=== PATIENT | female | born 1975 | race Caucasian/White ===

== ENCOUNTER 2022-11-11 13:43 | Observation (INO) ==
[2022-11-11] MEDS ORDERED: IOPAMIDOL 100 ML BOTTLE IV ONE (13:44)
[2022-11-11] MEDS ORDERED: MECLIZINE 25 MG TABLET PO ONE (13:48)
[2022-11-11] MEDS ORDERED: 0.9 % SODIUM CHLORIDE 1,000 ML IV ONE (13:48)
--- NOTE | 2022-11-11 13:48 | Emergency Department Note ---
Dizziness HPI General Chief Complaint: Dizziness Stated Complaint: chest pains Time Seen by Provider: 11/11/22 13:48 Source: patient Mode of arrival: ambulatory Limitations: no limitations History of Present Illness HPI Narrative: Narrative: Patient is a 47-year-old female who comes into the emergency department today reporting that approximately 4 days ago she started experiencing some occasional dizziness that last for a few seconds and goes away. She is also developed some right-sided chest pain that she describes as aching and sharp pain and radiates to the right shoulder blade. She currently rates her pain 7 out of 10 on a 0-10 numerical pain scale. She has noticed that the pain is slightly worse with taking a deep breath. She has felt occasionally short of breath. She denies any fevers or chills. She has had an occasional cough. She denies any hemoptysis. She does smoke. She denies any history of cardiovascular event, PE, or DVT. She has not had any abdominal pain, nausea, or vomiting. She has had an occasional headache located on the right rastafari of her head. She reports that this is similar to headache she has had in the past. She does have migraines and reports occasionally having some mild wavy lines in her vision. Her headache has been relieved with [id number] pain reliever. She rates her headache 2 out of 10 on a 0-10 numerical pain scale. Patient felt that her symptoms may have been related to anxiety and that is why she waited for the last 4 days before seeking medical attention. Related Data Home Medications Medication Instructions Recorded Confirmed cyclobenzaprine 10 mg tablet 5 mg PO HS 10/09/16 04/13/17 duloxetine 20 mg capsule,delayed 20 mg PO HS 10/09/16 04/13/17 release hydrocodone 7.5 mg-acetaminophen 1 tab PO BID 10/09/16 04/13/17 325 mg tablet ibuprofen 600 mg tablet 600 mg PO BID 10/09/16 04/13/17 lorazepam 1 mg tablet 1 mg PO DAILYP PRN Anxiety 10/09/16 04/13/17 Previous Rx's Medication Instructions Recorded benzocaine 20 % mucosal gel (Oral 1 applic mucous membrane BID PRN 04/13/17 Anesthetic) mouth irritation #9 grams Allergies Allergy/AdvReac Type Severity Reaction Status Date / Time Penicillins Allergy Intermediate Hives Verified 04/13/17 17:30 Sulfa (Sulfonamide Allergy Intermediate Hives Verified 04/13/17 17:30 Antibiotics) metal AdvReac Mild Redness of Uncoded 10/09/16 00:27 Skin Review of Systems ROS ROS Narrative: Narrative: All systems ED: reviewed and negative except as stated. [facility] Narrative Patient History Narrative: Narrative: Medical/Surgical/Family History All Active Problems (Updated 11/11/22 @ 17:39 by Lauri Angel DNP) Strain of lumbar region (Acute) Acute cholecystitis (Acute) Cholelithiasis (Acute) Social History Alcohol Intake Frequency: does not drink Substance Use: does not use Exam Narrative Narrative: Narrative: General Limitations: no limitations General appearance: Present alert and in no apparent distress Head Head: Present atraumatic, normocephalic and normal inspection Eye Eye: Present normal appearance, PERRL, EOMI, visual shanks intact and other (Negative skew test.); Absent scleral icterus, nystagmus or periorbital swelling ENT ENT: Present normal oropharynx and mucous membranes moist Neck Neck: Present normal inspection and full ROM; Absent lymphadenopathy Expanded Neck Neck - focused: Absent JVD Chest Chest: Present normal inspection and symmetric chest wall rise; Absent tenderness Respiratory Respiratory: Present normal lung sounds bilaterally; Absent respiratory distress, rales/crackles, wheezes or accessory muscle use Cardiovascular Cardiovascular: Present regular rate, normal rhythm and normal heart sounds; Absent JVD Extremities Extremities: Present normal inspection, full ROM and normal capillary refill; Absent pretibial edema or cyanosis Neurological Neurological: Present alert, oriented X3, CN II-XII intact and normal gait; Absent motor sensory deficit Expanded Neurological CEREBELLAR FUNCTION: finger to nose: Normal and heel to garcia: Normal Motor strength - LUE: 5/5 Motor strength - RUE: 5/5 Motor strength - LLE: 5/5 Motor strength - RLE: 5/5 SENSORY EXAM UPPER EXTREMITY: Normal: light touch SENSORY EXAM LOWER EXTREMITY: Normal: light touch Coma Scale Eye Opening: Spontaneous Coma Scale Motor Response: Obeys Commands Coma Scale Verbal Response: Oriented Coma Scale Total: 15 Skin Skin: Present warm (WNL), dry and normal color Course Vital Signs Vital signs: Vital Signs Temperature 98.9 F 11/11/22 13:44 Pulse Rate 100 H 11/11/22 13:44 Respiratory Rate 20 11/11/22 13:44 Blood Pressure 124/75 11/11/22 13:44 Pulse Oximetry (%) 100 11/11/22 13:44 Oxygen Delivery Method Room Air 11/11/22 13:44 Temperature 98.9 F 11/11/22 13:44 Pulse Rate 73 11/11/22 18:01 Respiratory Rate 20 11/11/22 13:44 Blood Pressure 65/42 11/11/22 16:31 Pulse Oximetry (%) 100 11/11/22 18:01 Oxygen Delivery Method Room Air 11/11/22 13:44 [facility] MDM Narrative Medical decision making narrative: Narrative: Patient is a 47-year-old female who came into the emergency department today with chief complaint of chest pain on the right side of her chest with radiation to her back that started 4 days ago. She is having some occasional dizziness that is very short-lived and last for few seconds at a time without any aggravating factors. Proceeded with EKG, chest x-ray, and laboratory evaluation for ACS and other causes of chest pains and dizziness. Her neurological examination today is normal. Patient's EKG is normal sinus rhythm with a rate of 84 and QTc of 447. No findings of acute coronary syndrome are seen on the EKG. Patient was given 1 L of IV normal saline for hydration and 324 mg of oral aspirin. Patient's D-dimer was minimally elevated today and she was complaining of shortness of breath and chest pain. There was consideration of potential PE. Proceed with CTA of chest for further evaluation. The CTA of the chest did not show any evidence of PE or other acute cardiopulmonary processes. On a secon fazal finding of the CTA there was findings of cholelithiasis and with patient having the symptoms of the right chest and shoulder blade discomfort this could be referred pain from the liver. I reevaluated the patient and she does have positive Leal sign. Ordered gallbladder ultrasound for further evaluation. Patient's white count today was normal and did not show any anemia. Her [id number]-[id number] chemistry panel is unremarkable. proBNP minimally elevated at 220. [id number] troponin is negative. Her urinalysis did not show any bacteria. There was some leukocyte Estrace and small amount of red blood cells but no findings of urinary tract infection. She is asymptomatic for any urinary tract infection as well. Patient's gallbladder ultrasound show multiple stones packing in the gallbladder compatible with severe cholelithiasis. Gallbladder wall is mildly thickened which may indicate early associated cholecystitis. Patient's AST is 13 and ALT 10. Total bilirubin 0.2. Patient's white count is normal. I contacted Dr. Marco Ortiz who is on-call for general surgery today to explain the findings seen on the ultrasound and laboratory work-up thus far. He recommended patient be admitted to [facility] under observation and clear liquids until midnight and then n.p.o. after midnight. He will plan on likely cholecystectomy in the morning. Patient will be admitted under Dr. Ortiz at [facility]. Patient reports having some mild hives with p enicillin but states she has taken Zosyn before. Dr. Ortiz preferred Zosyn for the patient and ordered Zosyn and transition orders to be admitted to [facility] today. Lab Data Lab results reviewed: Yes I reviewed the patient's lab results. 11/11/22 13:57 Labs: Lab Results 11/11/22 11/11/22 11/11/22 Range/Units 13:55 13:55 13:56 WBC (4.5-11.0) K/mcL RBC (3.59-5.38) M/mcL Hgb (11.2-15.7) g/dL Hct (34.1-44.9) % POC Hct (36-48) MCV (80.0-100.0) fL MCH (26.0-34.0) pg MCHC (31.0-36.0) g/dL RDW (11.5-14.5) % Plt Count (140-440) K/mcL MPV (8.8-12.5) fL Immature Gran % (Auto) (0.0-0.5) % Neut % (Auto) (38.0-78.0) % Lymph % (Auto) (15.5-49.0) % [place] % (Auto) (1.0-12.0) % Eos % (Auto) (0.0-7.0) % Baso % (Auto) (0.0-2.0) % Lymph # (Auto) (1.50-4.80) K/mcL [place] # (Auto) (0.10-0.90) K/mcL Eos # (Auto) (0.00-0.70) K/mcL Baso # (Auto) (0.00-0.30) K/mcL Immature Gran # (0.00-0.05) K/mcl Absolute Neutrophils (1.80-8.00) K/mcL D-Dimer 0.51 H (0.27-0.50) ug/mL POC Sodium (133-145) POC Potassium (3.3-5.1) POC Chloride (96-108) POC Total CO2 (22-30) POC Anion Gap (8.0-16.0) POC BUN (6-20) POC Creatinine (0.6-1.2) POC Glucose (70-105) POC WB Ioniz Calcium (1.16-1.32) Magnesium (1.6-2.5) mg/dL Total Bilirubin (0.1-1.0) mg/dL Direct Bilirubin (0-0.3) mg/dL AST (<32) U/L ALT (<40) U/L Alkaline Phosphatase (39-117) U/L NT-Pro-B Natriuret Pep 220.0 H (<125.0) pg/mL Total Protein (5.9-8.4) gm/dL Albumin (3.2-5.2) gm/dL Globulin (2.2-3.7) gm/dL Urine Color Urine Appearance (Clear) Urine pH (5.0-9.0) Ur Specific [place] (1.000-1.035) Urine Protein (Negative) mg/dL Urine Glucose (UA) (Negative) mg/dL Urine Ketones (Negative) mg/dL Urine Occult Blood (Negative) mg/dL Urine Nitrate (Negative) Urine Bilirubin (Negative) mg/dL Urine Urobilinogen mg/dL Ur Leukocyte Esterase (Negative) /uL Urine RBC (0-3) /hpf Urine WBC (0-4) /hpf Ur Squamous Epith Cells (0-4) /hpf Urine Bacteria (0) /hpf Hyaline Casts (0-2) /lph Urine Mucus (None) /hpf Ur Culture Indicated? POC Troponin I < 0.02 (0.00-0.08) 11/11/22 11/11/22 11/11/22 Range/Units 13:57 13:57 13:57 WBC 8.8 (4.5-11.0) K/mcL RBC 4.49 (3.59-5.38) M/mcL Hgb 13.3 (11.2-15.7) g/dL Hct 40.9 (34.1-44.9) % POC Hct 43.0 (36-48) MCV 91.1 (80.0-100.0) fL MCH 29.6 (26.0-34.0) pg MCHC 32.5 (31.0-36.0) g/dL RDW 13.2 (11.5-14.5) % Plt Count 342 (140-440) K/mcL MPV 9.3 (8.8-12.5) fL Immature Gran % (Auto) 0.3 (0.0-0.5) % Neut % (Auto) 58.9 (38.0-78.0) % Lymph % (Auto) 33.7 (15.5-49.0) % [place] % (Auto) 5.0 (1.0-12.0) % Eos % (Auto) 1.3 (0.0-7.0) % Baso % (Auto) 0.8 (0.0-2.0) % Lymph # (Auto) 2.96 (1.50-4.80) K/mcL [place] # (Auto) 0.44 (0.10-0.90) K/mcL Eos # (Auto) 0.11 (0.00-0.70) K/mcL Baso # (Auto) 0.07 (0.00-0.30) K/mcL Immature Gran # 0.03 (0.00-0.05) K/mcl Absolute Neutrophils 5.17 (1.80-8.00) K/mcL D-Dimer (0.27-0.50) ug/mL POC Sodium 138 (133-145) POC Potassium 4.5 (3.3-5.1) POC Chloride 103 (96-108) POC Total CO2 24.0 (22-30) POC Anion Gap 16.0 (8.0-16.0) POC BUN 13 (6-20) POC Creatinine 0.8 (0.6-1.2) POC Glucose 112 H (70-105) POC WB Ioniz Calcium 1.24 (1.16-1.32) Magnesium 2.0 (1.6-2.5) mg/dL Total Bilirubin 0.2 (0.1-1.0) mg/dL Direct Bilirubin < 0.2 (0-0.3) mg/dL AST 13 (<32) U/L ALT 10 (<40) U/L Alkaline Phosphatase 71 (39-117) U/L NT-Pro-B Natriuret Pep (<125.0) pg/mL Total Protein 7.5 (5.9-8.4) gm/dL Albumin 4.0 (3.2-5.2) gm/dL Globulin 3.5 (2.2-3.7) gm/dL Urine Color Urine Appearance (Clear) Urine pH (5.0-9.0) Ur Specific [place] (1.000-1.035) Urine Protein (Negative) mg/dL Urine Glucose (UA) (Negative) mg/dL Urine Ketones (Negative) mg/dL Urine Occult Blood (Negative) mg/dL Urine Nitrate (Negative) Urine Bilirubin (Negative) mg/dL Urine Urobilinogen mg/dL Ur Leukocyte Esterase (Negative) /uL Urine RBC (0-3) /hpf Urine WBC (0-4) /hpf Ur Squamous Epith Cells (0-4) /hpf Urine Bacteria (0) /hpf Hyaline Casts (0-2) /lph Urine Mucus (None) /hpf Ur Culture Indicated? POC Troponin I (0.00-0.08) 11/11/22 11/11/22 Range/Units 14:28 16:18 WBC (4.5-11.0) K/mcL RBC (3.59-5.38) M/mcL Hgb (11.2-15.7) g/dL Hct (34.1-44.9) % POC Hct (36-48) MCV (80.0-100.0) fL MCH (26.0-34.0) pg MCHC (31.0-36.0) g/dL RDW (11.5-14.5) % Plt Count (140-440) K/mcL MPV (8.8-12.5) fL Immature Gran % (Auto) (0.0-0.5) % Neut % (Auto) (38.0-78.0) % Lymph % (Auto) (15.5-49.0) % [place] % (Auto) (1.0-12.0) % Eos % (Auto) (0.0-7.0) % Baso % (Auto) (0.0-2.0) % Lymph # (Auto) (1.50-4.80) K/mcL [place] # (Auto) (0.10-0.90) K/mcL Eos # (Auto) (0.00-0.70) K/mcL Baso # (Auto) (0.00-0.30) K/mcL Immature Gran # (0.00-0.05) K/mcl Absolute Neutrophils (1.80-8.00) K/mcL D-Dimer (0.27-0.50) ug/mL POC Sodium (133-145) POC Potassium (3.3-5.1) POC Chloride (96-108) POC Total CO2 (22-30) POC Anion Gap (8.0-16.0) POC BUN (6-20) POC Creatinine (0.6-1.2) POC Glucose (70-105) POC WB Ioniz Calcium (1.16-1.32) Magnesium (1.6-2.5) mg/dL Total Bilirubin 0.2 (0.1-1.0) mg/dL Direct Bilirubin < 0.2 (0-0.3) mg/dL AST 10 (<32) U/L ALT 8 (<40) U/L Alkaline Phosphatase 63 (39-117) U/L NT-Pro-B Natriuret Pep (<125.0) pg/mL Total Protein 6.6 (5.9-8.4) gm/dL Albumin 3.8 (3.2-5.2) gm/dL Globulin 2.8 (2.2-3.7) gm/dL Urine Color [place] Urine Appearance Hazy A (Clear) Urine pH 6.0 (5.0-9.0) Ur Specific [place] 1.021 (1.000-1.035) Urine Protein Negative (Negative) mg/dL Urine Glucose (UA) Negative (Negative) mg/dL Urine Ketones Negative (Negative) mg/dL Urine Occult Blood Negative (Negative) mg/dL Urine Nitrate Negative (Negative) Urine Bilirubin Negative (Negative) mg/dL Urine Urobilinogen Negative mg/dL Ur Leukocyte Esterase 25 A (Negative) /uL Urine RBC 5 H (0-3) /hpf Urine WBC 2 (0-4) /hpf Ur Squamous Epith Cells < 1 (0-4) /hpf Urine Bacteria None (0) /hpf Hyaline Casts 27 H (0-2) /lph Urine Mucus Many A (None) /hpf Ur Culture Indicated? No POC Troponin I (0.00-0.08) Radiology Data Radiology results reviewed: Yes I reviewed the patient's radiology results. Radiology results narrative: Ordering Physician:Lauri Angel DNP Date of Service:11/11/22 Procedure(s):XR chest 1V portable CLINICAL INFORMATION: Chest pain. History of smoking COMPARISON: None. TECHNIQUE: PA and Lateral views FINDINGS: The heart size, mediastinum and pulmonary vessels are unremarkable. The lungs are clear. There are no effusions. Heavy calcification in the right rotator cuff insertion is compatible calcific tendinitis. IMPRESSION: Normal chest. Heavy calcific tendinitis right rotator cuff. Please correlate with pain with older abduction Interpreted and Authenticated by: Jez Nichols 11/11/22 Ordering Physician:Lauri Angel [facility] Date of Service:11/11/22 Procedure(s):CT angio chest CLINICAL INFORMATION: Right chest pain and elevated d-dimer COMPARISON: None. TECHNIQUE: 80ml of Isovue-370 were injected intravenously. Using SmartPrep to maximize pulmonary artery opacification, .625mm helical slices were obtained from the lung apices through the lung bases. Following reconstruction, 2.5 mm sagittal, coronal, and axial reformations were processed. The exam was reviewed at mediastinal, lung, and bone windows. The exam was performed using radiation dose optimization techniques including, but not limited to, automated exposure control, adjustment of the mA and/or kV according to patient size and use of iterative reconstruction technique. FINDINGS: Pulmonary parenchymal windows show the lungs are clear. Pleural spaces are unremarkable-no effusions. Mediastinal windows show the heart is grossly normal in size and configuration. The pulmonary arteries are normal diameter and well-opacified without evidence of embolus. Thoracic aorta is also normal diameter and well-opacified. There is no adenopathy in the mediastinal, hilar or axillary regions. Esophagus is grossly normal. The thyroid is unremarkable. Bone windows show minimal chronic wedging along mid lower thoracic vertebral bodies likely related Scheuermann's disease is moderate degenerative disc disease mid and lower thoracic spine.. Images through the superior abdomen show multiple cholesterol stones in the gallbladder IMPRESSION: No evidence of pulmonary embolus or other acute cardiopulmonary process. Chest is unremarkable Cholelithiasis. This may be the cause of patient's symptoms-right chest/abdominal pain is acknowledged. Suggest gallbladder ultrasound Interpreted and Authenticated by: Jez Nichols 11/11/22 Ordering Physician:Lauri Angel DNP Date of Service:11/11/22 Procedure(s):US abdomen limited CLINICAL INFORMATION: Shoulder pain, Leal's sign, and cholelithiasis COMPARISON: None. FINDINGS: The gallbladder is packed with stones and demonstrates a wall echo shadow sign. Gallbladder wall is thickened-5 mm. Common bile duct is mildly dilated 7 mm. Liver is diffusely hyperechoic no focal hepatic lesions. Pancreas two by bowel gas IMPRESSION: Multiple stones packing the gallbladder compatible with severe cholelithiasis. Gallbladder wall is mildly thickened which may indicate early associated cholecystitis Interpreted and Authenticated by: Jez Nichols 11/11/22 Discharge Plan Patient/Caregiver Discharge Instructions Pt seen by PROBATION AGENT/PA only: No Clinical Impression: Acute cholecystitis, Cholelithiasis Patient Disposition: Xfer As Outpt/Obs ([facility]) Follow up with: Cole Camarillo [Physician] - Prescriptions: No Action benzocaine [Oral Anesthetic] 20 % gel 1 applic MUCOUS MEM BID PRN (Reason: mouth irritation) Qty: 9 0RF Rx Instructions: apply to area with swab cyclobenzaprine 10 MG tablet 5 mg PO HS hydrocodone-acetaminophen 1 TAB tablet 1 tab PO BID lorazepam 1 MG tablet 1 mg PO DAILYP PRN (Reason: Anxiety) ibuprofen 600 MG tablet 600 mg PO BID duloxetine 20 MG capsule 20 mg PO HS
[2022-11-11] MEDS ORDERED: ASPIRIN 81 MG TAB.CHEW CHEWED ONE (13:55)
[2022-11-11 14:01] LABS: POC Calcium, Ionized 1.24 (1.16-1.32); POC Creatinine 0.8 (0.6-1.2); POC Potassium 4.5 (3.3-5.1)
[2022-11-11 14:20] LABS: Basophils # (Auto) 0.07 K/mcL (0.00-0.30); Basophils % (Auto) 0.8 % (0.0-2.0); Eosinophils # (Auto) 0.11 K/mcL (0.00-0.70); Eosinophils % (Auto) 1.3 % (0.0-7.0); Hematocrit 40.9 % (34.1-44.9); Hemoglobin 13.3 g/dL (11.2-15.7); Lymphocytes # (Auto) 2.96 K/mcL (1.50-4.80); Lymphocytes % (Auto) 33.7 % (15.5-49.0); Mean Cell Volume 91.1 fL (80.0-100.0); Mean Corpuscular HGB Conc 32.5 g/dL (31.0-36.0); Mean Platelet Volume 9.3 fL (8.8-12.5); Monocytes # (Auto) 0.44 K/mcL (0.10-0.90); Neutrophils % (Auto) 58.9 % (38.0-78.0); Platelet Count 342 K/mcL (140-440); RBC 4.49 M/mcL (3.59-5.38); Red Cell Distribution Width 13.2 % (11.5-14.5); WBC 8.8 K/mcL (4.5-11.0)
--- NOTE | 2022-11-11 14:33 | XRay Report ---
CLINICAL INFORMATION: Chest pain. History of smoking COMPARISON: None. TECHNIQUE: PA and Lateral views FINDINGS: The heart size, mediastinum and pulmonary vessels are unremarkable. The lungs are clear. There are no effusions. Heavy calcification in the right rotator cuff insertion is compatible calcific tendinitis. IMPRESSION: Normal chest. Heavy calcific tendinitis right rotator cuff. Please correlate with pain with older abduction Interpreted and Authenticated by: Jez Nichols 11/11/22
[2022-11-11 14:55] LABS: ALT/SGPT 10 U/L (<40); AST/SGOT 13 U/L (<32); Alkaline Phosphatase 71 U/L (39-117); Bilirubin,Direct < 0.2 mg/dL (0-0.3); Bilirubin,Total 0.2 mg/dL (0.1-1.0); Globulin 3.5 gm/dL (2.2-3.7)
[2022-11-11 15:16] LABS: Appearance,Urine HAZY (Clear); Bilirubin,Urine Negative (Negative); Color,Urine AMBER; Culture Indicated,Urine No; Glucose,Urine (UA) Negative (Negative); Ketones,Urine Negative (Negative); Leukocyte Esterase,Urine 25 /uL (Negative); Mucus,Urine MANY /hpf; Nitrate,Urine Negative (Negative); Protein,Urine Negative (Negative); Specific Gravity,Urine 1.021 (1.000-1.035); Urine Blood Negative (Negative); Urine Hyaline Cast 27 /lph (0-2); Urine RBC 5 /hpf (0-3); Urine Squamous Epithelial Cell < 1 /hpf (0-4); Urine WBC 2 /hpf (0-4); Urobilinogen,Urine Negative
--- NOTE | 2022-11-11 15:53 | Cat Scan Report ---
CLINICAL INFORMATION: Right chest pain and elevated d-dimer COMPARISON: None. TECHNIQUE: 80ml of Isovue-370 were injected intravenously. Using SmartPrep to maximize pulmonary artery opacification, .625mm helical slices were obtained from the lung apices through the lung bases. Following reconstruction, 2.5 mm sagittal, coronal, and axial reformations were processed. The exam was reviewed at mediastinal, lung, and bone windows. The exam was performed using radiation dose optimization techniques including, but not limited to, automated exposure control, adjustment of the mA and/or kV according to patient size and use of iterative reconstruction technique. FINDINGS: Pulmonary parenchymal windows show the lungs are clear. Pleural spaces are unremarkable-no effusions. Mediastinal windows show the heart is grossly normal in size and configuration. The pulmonary arteries are normal diameter and well-opacified without evidence of embolus. Thoracic aorta is also normal diameter and well-opacified. There is no adenopathy in the mediastinal, hilar or axillary regions. Esophagus is grossly normal. The thyroid is unremarkable. Bone windows show minimal chronic wedging along mid lower thoracic vertebral bodies likely related Scheuermann's disease is moderate degenerative disc disease mid and lower thoracic spine.. Images through the superior abdomen show multiple cholesterol stones in the gallbladder IMPRESSION: No evidence of pulmonary embolus or other acute cardiopulmonary process. Chest is unremarkable Cholelithiasis. This may be the cause of patient's symptoms-right chest/abdominal pain is acknowledged. Suggest gallbladder ultrasound Interpreted and Authenticated by: Jez Nichols 11/11/22
--- NOTE | 2022-11-11 16:52 | Ultrasound Report ---
CLINICAL INFORMATION: Shoulder pain, Leal's sign, and cholelithiasis COMPARISON: None. FINDINGS: The gallbladder is packed with stones and demonstrates a wall echo shadow sign. Gallbladder wall is thickened-5 mm. Common bile duct is mildly dilated 7 mm. Liver is diffusely hyperechoic no focal hepatic lesions. Pancreas two by bowel gas IMPRESSION: Multiple stones packing the gallbladder compatible with severe cholelithiasis. Gallbladder wall is mildly thickened which may indicate early associated cholecystitis Interpreted and Authenticated by: Jez Nichols 11/11/22
[2022-11-11 17:04] LABS: ALT/SGPT 8 U/L (<40); AST/SGOT 10 U/L (<32); Albumin 3.8 gm/dL (3.2-5.2); Alkaline Phosphatase 63 U/L (39-117); Bilirubin,Direct < 0.2 mg/dL (0-0.3); Bilirubin,Total 0.2 mg/dL (0.1-1.0); Globulin 2.8 gm/dL (2.2-3.7)
[2022-11-11] MEDS ORDERED: HYDROmorphone 0.5 MG/0.5 ML SYRINGE IV PRN (17:39)
[2022-11-11] MEDS ORDERED: PIPERACILLIN SODIUM/TAZOBACTAM 3.375 GM in DEXTROSE 5% IN WATER 50 ML IV SCH (17:45)
[2022-11-11] MEDS ORDERED: LORazepam (PP) 1 MG TABLET (#4) PO PRN (20:09)
[2022-11-11] MEDS ORDERED: ONDANSETRON 4 MG/2 ML VIAL IV PRN (20:20)
[2022-11-11] MEDS ORDERED: PROMETHAZINE 25 MG/ML VIAL IV PRN (20:24)
[2022-11-11] MEDS ORDERED: ALBUTEROL SULFATE 60 PUFF INHALER INH PRN (20:44)
--- NOTE | 2022-11-11 20:56 | General Surg History&Physical ---
HPI History of Present Illness Patient information: Note initiated : 11/11/22 at 8:46 pm Service Date, if different from initiated Date: [] Patient: Zainab Farmer 47 y/o F admitted on 11/11/22. Chief Complaint: [] Chief complaint: Gallstone disease with biliary colic History of present illness: Ms. Farmer is a 47 year old F seen in the emergency room for evaluation of right-sided chest pain of 2 days duration and pain in the right back. She has been symptomatic since Monday. She was seen in the emergency room and evaluated for possible pulmonary embolus and acute coronary syndrome. All of these tests were normal. The CTA of the chest for PE revealed gallstones. Gallbladder ultrasound confirmed gallbladder filled with stones with thickening of the gallbladder wall. Patient is felt to have severe biliary colic and is admitted with plans for cholecystectomy Constitutional Constitutional: Present headache(s) EENT Nose, mouth and throat: Present dizziness and headache(s) Cardiovascular Cardiovascular: Present chest pain Respiratory Respiratory: Present dyspnea on exertion and wheezing Gastrointestinal Gastrointestinal: Present abdominal pain, constipation, diarrhea and heartburn Genitourinary Genitourinary: Absent urinary frequency or urinary hesitancy Musculoskeletal Musculoskeletal: Present arthralgias and myalgias Integumentary Integumentary: Absent pruritus or swelling Neurological Neurological: Present dizziness; Absent abnormal gait, sensory deficit or vertigo Psychiatric Psychiatric: Present abnormal sleep pattern, anxiety, behavioral changes, irritability and panic attacks Endocrine Endocrine: Absent palpitations, polydipsia, polyphagia or polyuria Hematologic/Lymphatic Hematologic/Lymphatic: Absent easy bleeding, easy bruising or lymphadenopathy Allergic/Immunologic Allergic/Immunologic: Absent tongue swelling, throat swelling, uticaria, wheezing or lip swelling PFSH PFSH All Active Problems (Updated 11/11/22 @ 20:55 by Fadi Ortiz MD) Anxiety disorder (Acute) History of asthma (Acute) Cholelithiasis and cholecystitis without obstruction (Acute) Strain of lumbar region (Acute) Acute cholecystitis (Acute) Cholelithiasis (Acute) Medical History (Updated 11/11/22 @ 20:55 by Fadi Ortiz MD) Asthmatic bronchitis Surgical History (Updated 11/11/22 @ 20:51 by Fadi Ortiz MD) H/O: hysterectomy Social History (Updated 04/13/17 @ 18:08 by TAQUERIA Phelps) alcohol intake frequency: does not drink substance use type: does not use MEDS/ALLERGIES Home Medications and Allergies Home Medications Medication Instructions Recorded Confirmed Type hydrocodone 7.5 mg-acetaminophen 1 tab PO TID 10/09/16 11/11/22 History 325 mg tablet lorazepam 1 mg tablet 1 mg PO DAILYP PRN Anxiety 10/09/16 11/11/22 History cephalexin 500 mg tablet 500 mg PO BID UTI 11/11/22 11/11/22 History cyclobenzaprine 10 mg tablet 10 mg PO QHS 11/11/22 11/11/22 History indomethacin 50 mg capsule 50 mg PO TIDP PRN Pain 11/11/22 11/11/22 History Allergies Allergy/AdvReac Type Severity Reaction Status Date / Time Penicillins Allergy Severe Hives Verified 11/11/22 19:32 Sulfa (Sulfonamide Allergy Severe Hives Verified 11/11/22 19:32 Antibiotics) metal AdvReac Intermediate Redness of Uncoded 11/11/22 19:32 Skin Physical Examination Vital Signs Vital signs: Temp Pulse Resp BP Pulse Ox O2 Del Method 98.9 F 75 20 65/42 100 Room Air 11/11/22 13:44 11/11/22 18:25 11/11/22 13:44 11/11/22 16:31 11/11/22 18:25 11/11/22 13:44 General physical appearance General physical exam: well developed, well nourished, no distress and no pain Eyes Eye exam: PERRL and normal ocular movement ENT ENT exam: no hearing loss and no congestion Head Head exam IM: Present atraumatic, normal inspection and normocephalic Neck Neck exam: no masses, no bruits, trachea midline, no lymphadenopathy and no venous distension Cardiovascular Cardiovascular exam IM: Present normal rate and rhythm, RRR, +S1 and +S2; Absent JVD Respiratory Respiratory exam: normal expansion, normal respiratory effort and other (Expiratory wheezes bilaterally) Abdomen Abdomen: Present tender (Right upper quadrant) Integumentary Integumentary: Present no rash, no growths and no abnormal pigmentation Neurologic Neurologic: Present normal coordination and normal sensation Musculoskeletal Musculoskeletal: Present normal gait and normal posture Psychiatric Psychiatric: Present oriented to time, oriented to person, oriented to place, speech is normal and memory intact Results Labs 11/11/22 13:57 Labs: Abnormal lab results 11/11/22 11/11/22 11/11/22 Range/Units 13:55 13:55 13:57 D-Dimer 0.51 H (0.27-0.50) ug/mL POC Glucose 112 H (70-105) NT-Pro-B Natriuret Pep 220.0 H (<125.0) pg/mL Urine Appearance (Clear) Ur Leukocyte Esterase (Negative) /uL Urine RBC (0-3) /hpf Hyaline Casts (0-2) /lph Urine Mucus (None) /hpf 11/11/22 Range/Units 14:28 D-Dimer (0.27-0.50) ug/mL POC Glucose (70-105) NT-Pro-B Natriuret Pep (<125.0) pg/mL Urine Appearance Hazy A (Clear) Ur Leukocyte Esterase 25 A (Negative) /uL Urine RBC 5 H (0-3) /hpf Hyaline Casts 27 H (0-2) /lph Urine Mucus Many A (None) /hpf Diabetes panel 11/11/22 11/11/22 Range/Units 13:57 16:18 AST 13 10 (<32) U/L ALT 10 8 (<40) U/L Alkaline Phosphatase 71 63 (39-117) U/L Total Protein 7.5 6.6 (5.9-8.4) gm/dL Albumin 4.0 3.8 (3.2-5.2) gm/dL Calcium panel 11/11/22 11/11/22 Range/Units 13:57 16:18 Albumin 4.0 3.8 (3.2-5.2) gm/dL Adrenal panel 11/11/22 11/11/22 Range/Units 13:57 16:18 Total Bilirubin 0.2 0.2 (0.1-1.0) mg/dL AST 13 10 (<32) U/L ALT 10 8 (<40) U/L Alkaline Phosphatase 71 63 (39-117) U/L Total Protein 7.5 6.6 (5.9-8.4) gm/dL Albumin 4.0 3.8 (3.2-5.2) gm/dL All other labs normal. A/P Assessment and plan (1) Cholelithiasis and cholecystitis without obstruction: Status: Acute (2) History of asthma: Status: Acute (3) Anxiety disorder: Status: Acute Plan IV hydration N.p.o. after midnight Consent for laparoscopic cholecystectomy tomorrow Cefepime 2 g IV every 8 Continue home meds Sepsis Sepsis Identified: No Time Spent With Patient Time: Total time spent is greater than 50% in coordination of care (as documented) at patient's floor/unit and/or counseling patient:
[2022-11-11] MEDS ORDERED: CYCLOBENZAPRINE (PP) 10 MG TABLET PO SCH (21:00)
[2022-11-11 21:31] LABS: INR 0.9 (0.9-1.1); Prothrombin Time 12.6 sec (11.9-14.5)
[2022-11-11] MEDS: ACETAMINOPHEN 1,000 MG/100 ML BAG IV SCH (21:50)
[2022-11-11] MEDS: diphenhydrAMINE 25 MG CAPSULE PO PRN (21:51)
[2022-11-11] MEDS: LORazepam 1 MG TABLET PO PRN (21:51)
[2022-11-11] MEDS: 0.9 % SODIUM CHLORIDE 1,000 ML IV SCH (21:52)
[2022-11-11] MEDS: CEFEPIME 2 GM VIAL IV SCH (21:52)
[2022-11-11] MEDS: NICOTINE 14 MG PATCH TOPICAL SCH (22:07)
[2022-11-11] MEDS: CYCLOBENZAPRINE 10 MG TABLET PO SCH (22:07)
[2022-11-11] MEDS ORDERED: NICOTINE 14 MG PATCH ONE (22:09)
[2022-11-12] MEDS: ACETAMINOPHEN 1,000 MG/100 ML BAG IV SCH ×4 (02:59→20:38)
[2022-11-12] MEDS: CEFEPIME 2 GM VIAL IV SCH ×3 (05:16→20:38)
[2022-11-12] MEDS: ONDANSETRON 4 MG/2 ML VIAL IV PRN ×2 (06:06→10:55)
[2022-11-12] MEDS: 0.9 % SODIUM CHLORIDE 1,000 ML IV SCH ×4 (06:19→20:39)
[2022-11-12 06:35] LABS: Basophils # (Auto) 0.04 K/mcL (0.00-0.30); Basophils % (Auto) 0.5 % (0.0-2.0); Eosinophils # (Auto) 0.11 K/mcL (0.00-0.70); Eosinophils % (Auto) 1.5 % (0.0-7.0); Hematocrit 35.1 % (34.1-44.9); Hemoglobin 11.2 g/dL (11.2-15.7); Lymphocytes # (Auto) 2.98 K/mcL (1.50-4.80); Lymphocytes % (Auto) 40.9 % (15.5-49.0); Mean Cell Volume 91.4 fL (80.0-100.0); Mean Corpuscular HGB Conc 31.9 g/dL (31.0-36.0); Mean Platelet Volume 9.8 fL (8.8-12.5); Monocytes # (Auto) 0.46 K/mcL (0.10-0.90); Monocytes % (Auto) 6.3 % (1.0-12.0); Neutrophils % (Auto) 50.5 % (38.0-78.0); Platelet Count 274 K/mcL (140-440); RBC 3.84 M/mcL (3.59-5.38); Red Cell Distribution Width 13.3 % (11.5-14.5); WBC 7.3 K/mcL (4.5-11.0)
[2022-11-12 06:57] LABS: ALT/SGPT 7 U/L (<40); AST/SGOT 12 U/L (<32); Albumin 3.1 gm/dL (3.2-5.2); Albumin/Globulin Ratio 1.1 (1.0-2.3); Alkaline Phosphatase 55 U/L (39-117); Bilirubin,Direct < 0.2 mg/dL (0-0.3); Bilirubin,Total 0.2 mg/dL (0.1-1.0); Blood Urea Nitrogen 10 mg/dL (6-20); Calcium 8.4 mg/dL (8.6-10.4); Carbon Dioxide 23 mmol/L (22-30); Chloride 106 mmol/L (96-108); Globulin 2.8 gm/dL (2.2-3.7); Glomerular Filtration Rate 108; Glucose 93 mg/dL (70-105); Lactate Dehydrogenase 134 U/L (135-225); Phosphorous 3.6 mg/dL (2.5-4.5); Triglycerides 114 mg/dL (<150); Uric Acid 4.1 mg/dL (2.5-8.0)
[2022-11-12] MEDS ORDERED: ONDANSETRON 4 MG/2 ML VIAL ONE (08:58)
[2022-11-12] MEDS ORDERED: MIDAZOLAM 2 MG/2 ML VIAL ONE (08:58)
[2022-11-12] MEDS ORDERED: KETAMINE 50 MG/ML Syringe (ANEST) IV ONE (08:58)
[2022-11-12] MEDS ORDERED: PROPOFOL 200 MG/20 ML VIAL IV ONE (08:58)
[2022-11-12] MEDS ORDERED: HYDROmorphone 0.5 MG/0.5 ML SYRINGE ONE (08:58)
[2022-11-12] MEDS ORDERED: fentaNYL 100 MCG/2 ML VIAL IV ONE ×2 (08:58→09:37)
[2022-11-12] MEDS ORDERED: DEXAMETHASONE 10 MG/ML VIAL ONE (08:58)
[2022-11-12] MEDS ORDERED: ROCURONIUM 10 MG/ML ML IV ONE (08:58)
[2022-11-12] MEDS ORDERED: SCOPOLAMINE 1 PATCH PATCH TOPICAL PRN (09:00)
[2022-11-12] MEDS ORDERED: IPRATROPIUM/ALBUTEROL 3 ML AMPUL.NEB NEB PRN ×2 (09:00→09:37)
[2022-11-12] MEDS ORDERED: HYDROmorphone 0.5 MG/0.5 ML SYRINGE IV PRN (09:37)
[2022-11-12] MEDS ORDERED: PROMETHAZINE 25 MG/ML VIAL IV PRN (09:37)
[2022-11-12] MEDS ORDERED: METHOCARBAMOL 1,000 MG/10 ML VIAL IV PRN (09:37)
[2022-11-12] MEDS ORDERED: ACETAMINOPHEN 1,000 MG/100 ML BAG IV ONE (09:37)
[2022-11-12] MEDS ORDERED: ONDANSETRON 4 MG/2 ML VIAL IV PRN (09:37)
[2022-11-12] MEDS ORDERED: PROMETHAZINE 25 MG/ML VIAL IM PRN (09:37)
[2022-11-12] MEDS ORDERED: METOPROLOL TARTRATE 5 MG/5 ML VIAL IV PRN (09:37)
[2022-11-12] MEDS ORDERED: LABETALOL 5 MG/ML ML IV PRN (09:37)
--- NOTE | 2022-11-12 10:48 | Brief Operative Note ---
Brief Operative Note Date of procedure: 11/12/22 Pre-op diagnosis: ACUTE CHOLECYSTITIS WITH CHOLELITHIASIS Post-op diagnosis: other (ACUTE CHOLECYSTITIS WITH CHOLELITHIASIS) Procedure: LAPAROSCOPIC CHOLECYSTECTOMY Grafts/Implants: No Anesthesia: GETA Findings: ACUTE SEVERE INFLAMMATION OF GALLBLADDER TOTALLY FILLED WITH STONES EXTENSIVE ACUTE AND CHRONIC ADHESIONS Complications: none Surgeon: Fadi Ortiz Estimated blood loss (cc): 25 Specimens Removed/Pathology: other (GALLBLADDER) Condition: stable Disposition: PACU
[2022-11-12] MEDS ORDERED: KETOROLAC 30 MG/ML VIAL IV ONE (11:11)
[2022-11-12] MEDS: HYDROmorphone 1 MG/ML SYRINGE IV PRN ×3 (11:56→23:53)
[2022-11-12] MEDS: PANTOPRAZOLE 40 MG VIAL IV SCH ×2 (14:53→18:14)
[2022-11-12] MEDS: oxyCODONE IR 5 MG TABLET PO PRN (17:41)
[2022-11-12] MEDS: NICOTINE 14 MG PATCH TOPICAL SCH (17:41)
[2022-11-12] MEDS: LORazepam 1 MG TABLET PO PRN (20:37)
[2022-11-12] MEDS: diphenhydrAMINE 25 MG CAPSULE PO PRN (20:37)
[2022-11-12] MEDS: CYCLOBENZAPRINE 10 MG TABLET PO SCH (20:38)
--- NOTE | 2022-11-12 21:03 | EKG ---
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
[2022-11-13] MEDS: ACETAMINOPHEN 1,000 MG/100 ML BAG IV SCH ×4 (02:10→21:31)
[2022-11-13] MEDS: 0.9 % SODIUM CHLORIDE 1,000 ML IV SCH ×4 (02:11→22:08)
[2022-11-13] MEDS: CEFEPIME 2 GM VIAL IV SCH ×3 (04:47→21:31)
[2022-11-13] MEDS: oxyCODONE IR 5 MG TABLET PO PRN ×3 (04:53→18:34)
[2022-11-13 06:43] LABS: Basophils # (Auto) 0.02 K/mcL (0.00-0.30); Basophils % (Auto) 0.2 % (0.0-2.0); Eosinophils # (Auto) 0.01 K/mcL (0.00-0.70); Eosinophils % (Auto) 0.1 % (0.0-7.0); Hematocrit 31.6 % (34.1-44.9); Hemoglobin 10.1 g/dL (11.2-15.7); Lymphocytes # (Auto) 2.98 K/mcL (1.50-4.80); Lymphocytes % (Auto) 26.8 % (15.5-49.0); Mean Platelet Volume 9.8 fL (8.8-12.5); Monocytes # (Auto) 0.73 K/mcL (0.10-0.90); Monocytes % (Auto) 6.6 % (1.0-12.0); Neutrophils % (Auto) 65.9 % (38.0-78.0); Platelet Count 243 K/mcL (140-440); RBC 3.36 M/mcL (3.59-5.38); Red Cell Distribution Width 13.6 % (11.5-14.5); WBC 11.1 K/mcL (4.5-11.0)
[2022-11-13 07:12] LABS: ALT/SGPT 30 U/L (<40); AST/SGOT 35 U/L (<32); Albumin/Globulin Ratio 1.2 (1.0-2.3); Alkaline Phosphatase 54 U/L (39-117); Bilirubin,Direct < 0.2 mg/dL (0-0.3); Bilirubin,Total 0.2 mg/dL (0.1-1.0); Blood Urea Nitrogen 8 mg/dL (6-20); Calcium 8.1 mg/dL (8.6-10.4); Carbon Dioxide 22 mmol/L (22-30); Chloride 108 mmol/L (96-108); Globulin 2.5 gm/dL (2.2-3.7); Glomerular Filtration Rate 108; Glucose 99 mg/dL (70-105); Lactate Dehydrogenase 142 U/L (135-225); Phosphorous 3.1 mg/dL (2.5-4.5); Triglycerides 62 mg/dL (<150); Uric Acid 3.4 mg/dL (2.5-8.0)
[2022-11-13] MEDS: HYDROmorphone 1 MG/ML SYRINGE IV PRN ×2 (08:15→22:52)
[2022-11-13] MEDS: PANTOPRAZOLE 40 MG VIAL IV SCH ×3 (12:46→18:35)
[2022-11-13] MEDS: NICOTINE 14 MG PATCH TOPICAL SCH (12:56)
--- NOTE | 2022-11-13 13:08 | General Surgery Progress Note ---
SUBJECTIVE Subjective Patient information: Note initiated : 11/13/22 at 1:05 pm Service Date, if different from initiated Date: [] Patient: Zainab Farmer 47 y/o F admitted on 11/11/22. Chief Complaint: [] Principal diagnosis: Cholelithiasis with cholecystitis Interval history: Patient is clinically improved but has significant pain. White blood count 11.1, hemoglobin 10.1, hematocrit 31.6, potassium 4, BUN 8, creatinine 0.6. LFTs are normal Patient complains of dizziness and fullness in her head. Constitutional Vitals: Vital Signs Temp Pulse Resp BP Pulse Ox O2 Del Method O2 Flow Rate 98.5 F 65 12 94/65 95 Room Air 0 11/13/22 12:46 11/13/22 12:00 11/13/22 12:00 11/13/22 12:00 11/13/22 12:00 11/13/22 12:00 11/12/22 11:37 Period Temp Pulse Resp BP Sys/Rand Pulse Ox O2 Del Method O2 Flow Rate Last 24 Hr 97.3 F-99.0 F 59-84 12-20 94-120/62-77 95-100 Room Air-Room Air Intake and Output 11/13/22 11/13/22 11/13/22 03:59 11:59 19:59 Intake Total 1200 1020 Output Total 400 200 Balance 800 820 Weight 205 lb 8 oz Intake & Output: Intake & Output 11/13/22 11/13/22 11/13/22 03:59 11:59 19:59 Intake Total 1200 1020 Output Total 400 200 Balance 800 820 Weight 205 lb 8 oz Intake: IV 1200 Sodium Chloride 0.9% 1,000 ml @ 1000 150 mls/hr IV .Q6H40M [facility] Rx#: [id number] Oral 1020 Output: Void Amount 400 200 Other: Meal Lunch Percent of Meal Consumed 75% Feeding Ability Independent Urine Appearance Clear Clear Urine Color Yellow Yellow Urine Odor Normal Normal ENT ENT exam: Present normal external ear exam Additional comments: TMs cannot be evaluated because of mixture of and cerumen in both ear canals Neck Neck exam: Present normal inspection; Absent lymphadenopathy or tenderness Respiratory Respiratory exam: Present normal respiratory exam and CTAB Cardiovascular Cardiovascular exam: Present normal rate and rhythm, RRR, +S1 and +S2 GI/Abdominal GI/Abdominal exam: Present soft; Absent distended Additional comments: Mild tenderness around port sites otherwise abdominal exam is benign Extremities Exam Extremities exam: Present normal inspection and neurovascular intact A/P Assessment and plan (1) Cholelithiasis and cholecystitis without obstruction: Status: Acute Plan Delay discharge until tomorrow Encourage patient to be out of bed Time Spent With Patient Time: Total time spent is greater than 50% in coordination of care (as documented) at patient's floor/unit and/or counseling patient:
[2022-11-13] MEDS: diphenhydrAMINE 25 MG CAPSULE PO PRN (21:31)
[2022-11-13] MEDS: LORazepam 1 MG TABLET PO PRN (21:31)
[2022-11-13] MEDS: CYCLOBENZAPRINE 10 MG TABLET PO SCH (21:31)
[2022-11-13] MEDS: CARBAMIDE PEROXIDE OTIC SOL 15ML AU SCH (21:33)
[2022-11-14] MEDS: ACETAMINOPHEN 1,000 MG/100 ML BAG IV SCH ×2 (03:15→09:01)
[2022-11-14] MEDS: 0.9 % SODIUM CHLORIDE 1,000 ML IV SCH ×2 (03:16→09:29)
[2022-11-14] MEDS: oxyCODONE IR 5 MG TABLET PO PRN ×2 (03:43→12:35)
[2022-11-14] MEDS: CEFEPIME 2 GM VIAL IV SCH ×2 (05:05→14:20)
[2022-11-14] MEDS: PANTOPRAZOLE 40 MG VIAL IV SCH (07:22)
[2022-11-14 07:24] LABS: ALT/SGPT 20 U/L (<40); AST/SGOT 21 U/L (<32); Albumin 2.7 gm/dL (3.2-5.2); Alkaline Phosphatase 47 U/L (39-117); Bilirubin,Direct < 0.2 mg/dL (0-0.3); Bilirubin,Total 0.2 mg/dL (0.1-1.0); Blood Urea Nitrogen 8 mg/dL (6-20); Carbon Dioxide 24 mmol/L (22-30); Chloride 106 mmol/L (96-108); Globulin 2.6 gm/dL (2.2-3.7); Glomerular Filtration Rate 108; Glucose 91 mg/dL (70-105); Lactate Dehydrogenase 137 U/L (135-225); Phosphorous 2.9 mg/dL (2.5-4.5); Triglycerides 95 mg/dL (<150); Uric Acid 3.8 mg/dL (2.5-8.0)
[2022-11-14] MEDS: HYDROmorphone 1 MG/ML SYRINGE IV PRN (07:32)
[2022-11-14] MEDS: CARBAMIDE PEROXIDE OTIC SOL 15ML AU SCH (09:01)
[2022-11-14] MEDS: NICOTINE 14 MG PATCH TOPICAL SCH (10:02)
--- NOTE | 2022-11-14 14:34 | Discharge Summary ---
Discharge Provider Provider IMPORTANT FOLLOW-UP INFORMATION FOR PCP: Patient information: Note initiated : 11/14/22 at 2:32 pm Service Date, if different from initiated Date: [] Patient: Zainab Farmer 47 y/o F admitted on 11/11/22. Chief Complaint: [] Date of admission: 11/11/22 19:05 Discharge date: 11/14/22 Primary care physician: Rina Logan Admitting clinician: Fadi Ortiz Attending physician on admission: Fadi Ortiz Consults: 11/11/22 Consult to Physician [CONS] Stat Comment: Consulting Provider: Fadi Ortiz Reason For Exam: Physician to Consult Attending physician on discharge: Fadi Ortiz Discharging clinician: Fadi Ortiz COURSE Hospital Course Hospital course: 47-year-old female with history of anxiety syndrome. Patient presented to the emergency room with complaint of left-sided chest pain and back pain with increased anxiety and tachypnea. She was evaluated for acute coronary syndrome and pulmonary embolus. Cardiac evaluation was unremarkable without any abnormality noted. CTA of the lungs did not reveal any embolus but the lower m argin did reveal multiple gallstones. Upper abdominal ultrasound was performed which showed an gallbladder massively distended with gallstones. Patient also had thickening of the gallbladder wall. She underwent cholecystectomy on 11 November 2022. She was found to have multiple stones filling the entire gallbladder with thickened wall. Uneventful cholecystectomy was performed. On the first postoperative day patient was having significant nausea and pain so her discharge was delayed. She is feeling better at this time and is stable for discharge home. Discharge diagnosis: Acute cholecystitis with cholelithiasis Secondary discharge diagnosis: Chronic anxiety syndrome Reason for admission: Acute cholecystitis with cholelithiasis Procedures: Laparoscopic cholecystectomy Pertinent studies/significant findings: None Complications: None Time Spent with Patient Time attestation: Total time spent providing and/or coordinating discharge services: Time spent: Less than 30 minutes Physical Examination Vital Signs Vital signs: Temp Pulse Resp BP Pulse Ox O2 Del Method O2 Flow Rate 97.6 F 61 18 105/65 98 Room Air 0 11/14/22 12:00 11/14/22 12:00 11/14/22 12:00 11/14/22 12:00 11/14/22 12:00 11/14/22 12:00 11/12/22 11:37 General physical appearance General physical exam: well developed, well nourished, no distress and no pain Eyes Eye exam: PERRL and normal ocular movement ENT ENT exam: no hearing loss and no congestion Head Head exam IM: Present atraumatic, normal inspection and normocephalic Neck Neck exam: no masses, no bruits, trachea midline, no lymphadenopathy and no venous distension Cardiovascular Cardiovascular exam IM: Present normal rate and rhythm, RRR, +S1 and +S2; Absent JVD Respiratory Respiratory exam: normal expansion, normal respiratory effort and other (Expiratory wheezes bilaterally) Abdomen Abdomen: Present tender (Tenderness around port sites with the major tenderness around the upper medial port site) Integumentary Integumentary: Present no rash, no growths and no abnormal pigmentation Neurologic Neurologic: Present normal coordination and normal sensation Musculoskeletal Musculoskeletal: Present normal gait and normal posture Psychiatric Psychiatric: Present oriented to time, oriented to person, oriented to place, speech is normal and memory intact Discharge Plan Patient/Caregiver Discharge Instructions Activity: increase activity as tolerated Diet: Regular Diet and Low Fat Prescriptions: New oxycodone-acetaminophen [Endocet] 10-325 mg tablet 1 tab PO Q4H PRN (Reason: Pain) Qty: 30 0RF Continued hydrocodone-acetaminophen 1 TAB tablet 1 tab PO TID Rx Instructions: once 10mg tab given PRN TID. lorazepam 1 MG tablet 1 mg PO DAILYP PRN (Reason: Anxiety) cyclobenzaprine 10 mg tablet 10 mg PO QHS indomethacin 50 mg capsule 50 mg PO TIDP PRN (Reason: Pain) cephalexin 500 mg tablet 500 mg PO BID Prescription drug monitoring program results: PDMP not reviewed Follow Up Plan Follow up with: Fadi Ortiz MD [Physician] - (Contact the office and follow-up with me in 2 weeks) Cole Camarillo [Physician] - Patient Disposition: Home, Self-Care Prognosis: Good Rehab Potential: Good I certify that the patient requires SNF services: No Overall status at discharge: patient is progressing back to baseline Discharge Orders: Discharge Order (Routine); Ordered 11/14/22 Ordered By: Fadi Ortiz Pending Pending Pending: Resuscitation Status Resuscitate (Full Code) Diet GI Soft/Transitional Start Sat Nov 12 1348 Carbamide Peroxide (Carbamide Peroxide Otic Natali 15ml) 10 gtt AU BID SAMMY Last Admin: 11/14/22 09:01 Dose: 1 drop Documented By: Admin: 11/13/22 21:33 Dose: 1 drop Documented By: OSMIN Cefepime HCl (Cefepime 2 Gm Vial) 2 gm IV Q8H SAMMY; Protocol Last Admin: 11/14/22 14:20 Dose: Not Given Documented By: Admin: 11/14/22 05:05 Dose: 2 gm Documented By: Admin: 11/13/22 21:31 Dose: 2 gm Documented By: Admin: 11/13/22 12:56 Dose: 2 gm Documented By: Admin: 11/13/22 04:47 Dose: 2 gm Documented By: Admin: 11/12/22 20:38 Dose: 2 gm Documented By: Admin: 11/12/22 18:14 Dose: 2 gm Documented By: Admin: 11/12/22 05:16 Dose: 2 gm Documented By: Admin: 11/11/22 21:52 Dose: 2 gm Documented By: OSMIN Cyclobenzaprine HCl (Cyclobenzaprine 10 Mg Tablet) 10 mg PO QHS [facility] Last Admin: 11/13/22 21:31 Dose: 10 mg Documented By: Admin: 11/12/22 20:38 Dose: 10 mg Documented By: Admin: 11/11/22 22:07 Dose: 10 mg Documented By: OSMIN Diphenhydramine HCl (Diphenhydramine 25 Mg Capsule) 50 mg PO HSP PRN PRN Reason: Insomnia Last Admin: 11/13/22 21:31 Dose: 50 mg Documented By: Admin: 11/12/22 20:37 Dose: 50 mg Documented By: Admin: 11/11/22 21:51 Dose: 50 mg Documented By: OSMIN Hydromorphone HCl (Hydromorphone 1 Mg/Ml Syringe) 1 mg IV Q2HP PRN; Protocol PRN Reason: Per Pain Protocol Last Admin: 11/14/22 07:32 Dose: 1 mg Documented By: Admin: 11/13/22 22:52 Dose: 1 mg Documented By: Admin: 11/13/22 08:15 Dose: 1 mg Documented By: Admin: 11/12/22 23:53 Dose: 1 mg Documented By: Admin: 11/12/22 15:49 Dose: 1 mg Documented By: Admin: 11/12/22 11:56 Dose: 1 mg Documented By: JANICE Sodium Chloride (Sodium Chloride 0.9%) 1,000 mls @ 150 mls/hr IV .Q6H40M [facility] Last Admin: 11/14/22 09:29 Dose: Not Given Documented By: Admin: 11/14/22 03:16 Dose: 150 mls/hr Documented By: Admin: 11/13/22 22:08 Dose: Not Given Documented By: Admin: 11/13/22 13:29 Dose: Not Given Documented By: Infusion: 11/13/22 13:29 Dose: 0 mls/hr Documented By: Admin: 11/13/22 04:54 Dose: 150 mls/hr Documented By: Infusion: 11/13/22 03:20 Dose: 150 mls/hr Documented By: Admin: 11/13/22 02:11 Dose: Not Given Documented By: Admin: 11/12/22 20:39 Dose: 150 mls/hr Documented By: Infusion: 11/12/22 18:40 Dose: 150 mls/hr Documented By: Admin: 11/12/22 16:40 Dose: Not Given Documented By: Admin: 11/12/22 11:59 Dose: 150 mls/hr Documented By: Infusion: 11/12/22 11:59 Dose: 0 mls/hr Documented By: Infusion: 11/12/22 08:20 Dose: 0 mls/hr Documented By: Admin: 11/12/22 06:19 Dose: 150 mls/hr Documented By: Infusion: 11/12/22 04:33 Dose: 150 mls/hr Documented By: Admin: 11/11/22 21:52 Dose: 150 mls/hr Documented By: OSMIN Acetaminophen (Ofirmev) 1,000 mg in 100 mls @ 200 mls/hr IV Q6H [facility] Last Infusion: 11/14/22 09:35 Dose: 0 mls/hr Documented By: Admin: 11/14/22 09:01 Dose: 200 mls/hr Documented By: Infusion: 11/14/22 03:45 Dose: 0 mls/hr Documented By: Admin: 11/14/22 03:15 Dose: 200 mls/hr Documented By: Infusion: 11/13/22 22:01 Dose: 0 mls/hr Documented By: Admin: 11/13/22 21:31 Dose: 200 mls/hr Documented By: Admin: 11/13/22 13:49 Dose: Not Given Documented By: Infusion: 11/13/22 13:30 Dose: 0 mls/hr Documented By: Admin: 11/13/22 12:46 Dose: 200 mls/hr Documented By: Infusion: 11/13/22 02:40 Dose: 0 mls/hr Documented By: Admin: 11/13/22 02:10 Dose: 200 mls/hr Documented By: Infusion: 11/12/22 21:08 Dose: 0 mls/hr Documented By: Admin: 11/12/22 20:38 Dose: 200 mls/hr Documented By: Infusion: 11/12/22 16:18 Dose: 0 mls/hr Documented By: Admin: 11/12/22 15:48 Dose: 200 mls/hr Documented By: Admin: 11/12/22 09:55 Dose: Not Given Documented By: Infusion: 11/12/22 03:29 Dose: 0 mls/hr Documented By: Admin: 11/12/22 02:59 Dose: 200 mls/hr Documented By: Infusion: 11/11/22 22:20 Dose: 0 mls/hr Documented By: Admin: 11/11/22 21:50 Dose: 200 mls/hr Documented By: OSMIN Lorazepam (Lorazepam 1 Mg Tablet) 1 mg PO DAILYP PRN PRN Reason: Anxiety Last Admin: 11/13/22 21:31 Dose: 1 mg Documented By: Admin: 11/12/22 20:37 Dose: 1 mg Documented By: Admin: 11/11/22 21:51 Dose: 1 mg Documented By: OSMIN Nicotine (Nicotine 14 Mg Patch) 14 mg TOPICAL DAILY@1000 [facility] Last Admin: 11/14/22 10:02 Dose: 14 mg Documented By: Admin: 11/13/22 12:56 Dose: 14 mg Documented By: Admin: 11/12/22 17:41 Dose: 14 mg Documented By: Admin: 11/11/22 22:07 Dose: 14 mg Documented By: OSMIN Ondansetron HCl (Ondansetron 4 Mg/2 Ml Vial) 4 mg IV Q4HP PRN; Protocol PRN Reason: Nausea And Vomiting Last Admin: 11/12/22 10:55 Dose: 4 mg Documented By: Admin: 11/12/22 06:06 Dose: 4 mg Documented By: OSMIN Oxycodone HCl (Oxycodone Ir 5 Mg Tablet) 10 mg PO Q4HP PRN; Protocol PRN Reason: Per Pain Protocol Last Admin: 11/14/22 12:35 Dose: 10 mg Documented By: Admin: 11/14/22 03:43 Dose: 10 mg Documented By: Admin: 11/13/22 18:34 Dose: 10 mg Documented By: Admin: 11/13/22 12:45 Dose: 10 mg Documented By: Admin: 11/13/22 04:53 Dose: 10 mg Documented By: Admin: 11/12/22 17:41 Dose: 10 mg Documented By: JANICE Pantoprazole Sodium (Pantoprazole 40 Mg Vial) [facility] Last Admin: 11/14/22 07:22 Dose: 40 mg Documented By: Admin: 11/13/22 18:33 Dose: 40 mg Documented By: Admin: 11/13/22 12:46 Dose: 40 mg Documented By: Admin: 11/12/22 18:14 Dose: 40 mg Documented By: Admin: 11/12/22 14:53 Dose: Not Given Documented By: JANICE Promethazine HCl (Promethazine 25 Mg/Ml Vial) 12.5 mg IV Q4HP PRN; Protocol PRN Reason: Nausea/Vomiting Last Admin: 11/12/22 12:24 Dose: 12.5 mg Documented By: JANICE Shift Summary 11/14/22 05:37 Shift Summary by Jada Briseno Primary Diagnosis: Cholelithiasis with Cholecystitis Registration Status: OBS Date of Surgery (if applicable): 11/12/22 Lap Cholecystectomy Pertinent Medical Dx/Issue(s): Anxiety, Asthma, Chronic back pain, UTI, Heartburn, Hysterectomy 10/05/22, Current smoker Med management (antibiotics, diuretics, BP): Cefepime Skin/Wound Care: Bruising to Right lateral thigh from previous fall at home. 4 Lap sites to abdomen with gauze and Tegaderm C/D/I. Vital Signs with Trends: Soft BP's MAP >60, pt received ordered IV fluids this shift. O2, liter flow/saturations: RA Pain management (acute vs. chronic): Scheduled Ofirmev, Roxicodone, and Dilaudid. Lab/Rad (abnormals, trends): Neuro/Mental Status: A&O x4 Cardiac Rhythm, Alarm Settings:N/A Urinary Elimination Device: BR Urinary output greater than 30mL/hr? Yes Date of last BM: 11/09/22 Lines/Tubes: R FA NS@150 Activity: Independent on this shift, pt ambulated with staff in the hallway. Recommendations/questions for MD: Discharge Plan (needs, disposition, etc): Home with family. Pt did not report dizziness this shift, received ear drops on left ear only, pt stated there was cotton in her right ear. Pt reported moderate improvement on her left ear symptoms. Pt was concerned that her abdomen was extended, per RN's physical assessment there was not any visible changes. Pt was very anxious earlier on this shift due to a family matter. Pt was urged to use relaxation techniques and antianxiety medication was administered. Initialized on 11/14/22 05:37 - END OF NOTE
--- NOTE | 2022-11-16 13:51 | Operative Note ---
DATE OF OPERATION: 11/12/2022 PREOPERATIVE DIAGNOSIS: Acute cholecystitis with cholelithiasis. POSTOPERATIVE DIAGNOSES: Acute cholecystitis with cholelithiasis. PROCEDURE: Laparoscopic cholecystectomy. SURGEON: Fadi Ortiz M.D. FINDINGS: Acute severe inflammation of the gallbladder, which was totally filled with stones with extensive acute and chronic adhesions. DESCRIPTION OF PROCEDURE: Under general anesthesia, the patient's abdomen was prepped and draped in a sterile field. Supraumbilical incision was made and Veress needle was inserted. The abdomen was insufflated with 3 liters of CO2. A 12 mm port was placed. Laparoscope was placed. A severely inflamed gallbladder was noted. There was tightly contracted with stones. Under videoscopic guidance, a 12 mm port and two 5 mm ports were placed in the right subcostal region. The infundibulum of the gallbladder was grasped and with blunt dissection, the cystic duct and cystic artery branches were isolated. Cystic duct was dissected and was transected at its junction with the gallbladder using an Endo KAR stapler. Cystic artery was followed onto the gallbladder wall and was stapled with four eden and divided. The gallbladder was then from the infrahepatic bed using electrocautery. There were acute and chronic adhesions that were also removed. The gallbladder was tightly compacted in the upper incision had to be enlarged in order to remove it. It was removed intact. Irrigation was carried out. No drain was needed. CO2 was allowed to escape from the abdomen and the ports were removed. The fascia at the umbilicus was closed with 0 Vicryl. The skin incisions were closed with eden. The patient tolerated the procedure well. Tegaderm dressings were placed. He was awakened from anesthesia, transferred to a bed, and taken to the postanesthetic care unit in satisfactory condition. LCS:francisco Job ID: [id number] Doc ID: [id number] Fadi rOtiz M.D.
== END 2022-11-14 15:23 | disposition home or self-care (01) ==
LOC: ED 13:43 → MEDSUR 13:43
PROVIDERS: ADMIT Family Medicine Adult Medicine; ATTEND Family Medicine Adult Medicine